=== PATIENT | female | born 1985 | race African-American/Black ===

== ENCOUNTER 2017-07-03 10:29 | Emergency (ER) | payer MEDICAID ==
[~2017-07-03] VITALS: Ht 170.2 cm; Wt 59.0 kg
[2017-07-03 10:45] VITALS: BP 110/70
== END 2017-07-03 19:45 | disposition left against medical advice (07) ==
LOC: ER 11:42
DX: R42 Dizziness and giddiness (principal); Z53.21 Procedure and treatment not carried out due to patient leaving prior to being seen by health care provider